=== PATIENT | female | born 1970 | race Caucasian/White ===

== ENCOUNTER 2019-01-02 14:46 | Emergency (ER) | payer OTHER ==
[~2019-01-02] VITALS: Wt 72.7 kg
[2019-01-02] MEDS ORDERED: KETOROLAC 60 MG INJ IM STA (16:22)
--- NOTE | 2019-01-02 16:28 | ERD ---
ER Documentation Chief Complaint Chief Complaint llq abd pain rad into rlq, nausea, sore throat HPI 48-year-old female with no significant past medical history presenting with complaints of left lower quadrant pain. She states that she has had the pain intermittently for the past month or so. In the past 2 days the pain has been worse. It is mostly nonradiating but occasionally she feels pain on her right lower abdomen as well. No associated nausea, vomiting, fever, chills, dysuria, hematuria, constipation, diarrhea, hematochezia or melena. The pain is sharp, intermittent, waxing and waning in intensity. No alleviating factors. Sometimes it is worse with walking. However it is also worse with laying down at times as well. Last menstrual period was about 10 days ago. She is still regular with her periods. Of note, the patient does have a history of a left ovarian torsion about 10 years ago and states that this does not feel like that. ROS All systems reviewed and are negative except as per history of present illness. Medications Home Meds Active Scripts Ibuprofen* (Motrin*) 600 Mg Tab, 600 MG PO Q6H PRN for PAIN AND OR ELEVATED TEMP, #30 TAB Prov:GONZALO RUIZ MD 01/02/19 Allergies Allergies: Coded Allergies: No Known Allergy (Unverified , 01/02/19) PMhx/Soc Medical and Surgical Hx: pt denies Medical Hx History of Surgery: Yes ( x2, surgery for ovarian torsion) Hx Miscellaneous Medical Probl: Yes (History of ovarian cysts and ovarian torsion on the left) Hx Alcohol Use: No Hx Substance Use: No Hx Tobacco Use: No FmHx Mother had ovarian cancer Physical Exam Vitals Vital Signs Date Temp Pulse Resp B/P (MAP) Pulse Ox O2 O2 Flow FiO2 Time Delivery Rate 01/02/19 99.7 88 20 142/68 98 14:49 (92) Physical Exam Const: No acute distress Head: Atraumatic Eyes: Normal Conjunctiva ENT: Normal External Ears, Nose and Mouth. Neck: Full range of motion. No meningismus. Resp: Clear to auscultation bilaterally Cardio: Regular rate and rhythm, no murmurs Abd: Soft, non tender, no masses, non distended. No rebound or guarding. Normal bowel sounds Skin: No petechiae or rashes Back: No midline or flank tenderness Ext: No cyanosis, or edema Neur: Awake and alert Psych: Normal Mood and Affect Result Diagram: 01/02/19 1630 01/02/19 1630 Results 24 hrs Laboratory Tests Test 01/02/19 16:30 01/02/19 16:37 White Blood Count 6.7 10^3/ul Red Blood Count 4.21 10^6/ul Hemoglobin 12.2 g/dl Hematocrit 37.7 % Mean Corpuscular Volume 89.5 fl Mean Corpuscular Hemoglobin 29.0 pg Mean Corpuscular Hemoglobin Concent 32.4 g/dl Red Cell Distribution Width 12.8 % Platelet Count 194 10^3/UL Mean Platelet Volume 11.2 fl Immature Granulocytes % 0.100 % Neutrophils % 64.6 % Lymphocytes % 27.0 % Monocytes % 7.2 % Eosinophils % 0.7 % Basophils % 0.4 % Nucleated Red Blood Cells % 0.0 /100WBC Immature Granulocytes # 0.010 10^3/ul Neutrophils # 4.3 10^3/ul Lymphocytes # 1.8 10^3/ul Monocytes # 0.5 10^3/ul Eosinophils # 0.1 10^3/ul Basophils # 0.0 10^3/ul Nucleated Red Blood Cells # 0.0 10^3/ul Urine Color YELLOW Urine Clarity CLOUDY Urine pH 5.0 Urine Specific [place] 1.019 Urine Ketones NEGATIVE mg/dL Urine Nitrite POSITIVE mg/dL Urine Bilirubin NEGATIVE mg/dL Urine Urobilinogen NEGATIVE mg/dL Urine Leukocyte Esterase 1+ Dorian/ul Urine Microscopic RBC 2 /HPF Urine Microscopic WBC 11 /HPF Urine Squamous Epithelial Cells MANY /HPF Urine Bacteria FEW /HPF Urine Hemoglobin 2+ mg/dL Urine Glucose NEGATIVE mg/dL Urine Total Protein NEGATIVE mg/dl Sodium Level 138 mmol/L Potassium Level 3.7 mmol/L Chloride Level 103 mmol/L Carbon Dioxide Level 26 mmol/L Anion Gap 9 Blood Urea Nitrogen 16 mg/dl Creatinine 0.74 mg/dl Est Glomerular Filtrat Rate mL/min > 60 mL/min Glucose Level 104 mg/dl Calcium Level 8.8 mg/dl POC Beta HCG, Qualitative NEGATIVE Current Medications Medications Dose Sig/Simón Start Time Status Last (Trade) Ordered Route PRN Stop Time Admin Dose Reason Admin Ketorolac 60 mg ONCE STAT 01/02/19 DC Tromethamine IM 16:22 (Toradol) 01/02/19 16:53 Ketorolac 30 mg ONCE STAT 01/02/19 DC 01/02/19 Tromethamine IV 16:52 17:10 (Toradol) 01/02/19 16:53 Procedures/MDM EMERGENT LABS AND DIAGNOSTIC STUDIES: Lab Results above were reviewed and interpreted by me. CBC: no anemia or evidence of infection BMP: No evidence of electrolyte abnormality, renal failure, hypoglycemia UA: Abnormal, but appears to be contaminated. Culture pending Radiology Results as interpreted by Radiology below were reviewed by Stefanie Ruiz MD: Ultrasound pelvis: Right-sided hemorrhagic ovarian cyst without evidence of abnormal flow. Left ovary not visualized. No free fluid Initial Nursing notes reviewed. Previous Medical Records requested via the Electronic Health Record. EMERGENCY DEPARTMENT COURSE / MEDICAL DECISION MAKING: Patient is presenting with intermittent left lower quadrant pain, somewhat worse today. Vitals are stable. I have a low suspicion for consistent with UTI, pyelonephritis, diverticulitis, bowel obstruction, ureterolithiasis., PID, or tubo-ovarian abscess. Given her history of cysts, pelvic ultrasound was ordered and showed a right-sided ovarian cyst with normal flow but the left ovary was not visualized. Initially the patient was treated with Toradol IV. I reevaluated her and she states that her pain has resolved. I have a low suspicion for left ovarian torsion, however I did recommend follow-up with gynecology. Given her history, she is at increased risk for a cyst on her left ovary and if so, at risk for torsion. Patient understands discharge plan. She has a appointment scheduled with her water mangle tender for January 14. Strict return precautions discussed. Patient's blood pressure was elevated (>120/80) but appears stable without evidence of hypertensive emergency or urgency. The patient was counseled about the risks of hypertension and urged to pursue outpatient monitoring and therapy within a week with their primary care physician. Departure Diagnosis: Primary Impression: Abdominal pain Abdominal location: left lower quadrant Qualified Codes: R10.32 - Left lower quadrant pain Additional Impression: Hemorrhagic cyst of right ovary Condition: Stable EKGONZALO PATTON MD Jan 02, 2019 16:28
[2019-01-02] MEDS ORDERED: KETOROLAC 30 MG INJ IV STA (16:52)
[2019-01-02] MEDS ORDERED: IBUP-1542 PO (18:23)
[2019-01-02 18:35] VITALS: BP 135/71; PULSE 88; RESP 20
== END 2019-01-02 18:39 | disposition home or self-care (01) ==
LOC: E/R 14:46
DX: N83.201 Unspecified ovarian cyst, right side (principal); R10.2 Pelvic and perineal pain
CPT/HCPCS: 36415; 76830; 76856; 80048; 81001; 81025; 85025; 87086; 96374; J1885; Z7502